=== PATIENT | male | born 1965 | race Caucasian/White ===

== ENCOUNTER 2023-07-05 06:33 | Outpatient (OUT) | payer OTHER, SELFPAY ==
[2023-07-05 07:48] LABS: Basophils Absolute Auto 0.1 10^3/uL (0.0-0.1); Basophils Percent Auto 1.1 % (0.2-2.0); Eosinophils Absolute Auto 0.4 10^3/uL (0.0-0.7); Eosinophils Percent Auto 5.3 % (0.9-7.0); Hematocrit 48.1 % (42.0-54.0); Hemoglobin 15.9 g/dL (14.0-18.0); Immature Granulocytes Abs Auto 0.03 10^3/uL (0.00-0.03); Immature Granulocytes Pct Auto 0.4 % (0.0-0.5); Lymphocytes Absolute Auto 2.2 10^3/uL (1.2-3.8); Lymphocytes Percent Auto 27.9 % (20.5-60.0); Mean Corpuscular HGB Conc 33.1 g/dL (29.9-35.2); Mean Corpuscular Hemoglobin 29.4 pg (25.9-34.0); Mean Corpuscular Volume 88.9 fL (80.0-94.0); Mean Platelet Volume 9.8 fL (9.5-13.5); Monocytes Absolute Auto 0.7 10^3/uL (0.3-0.8); Monocytes Percent Auto 9.1 % (1.7-12.0); Neutrophils Absolute Auto 4.5 10^3/uL (1.4-6.5); Neutrophils Percent Auto 56.2 % (43.0-75.0); Platelet Count 293 10^3/uL (150-450); Red Blood Count 5.41 10^6/uL (4.70-6.10); Red Cell Distribution Width 12.2 % (11.0-15.0)
[2023-07-05 07:58] LABS: Estimated Average Glucose 108 mg/dL; Glycohemoglobin A1C 5.4 % (4.5-6.2)
[2023-07-05 08:10] LABS: Alanine Aminotransferase 55 U/L (16-63); Albumin Globulin Ratio 1.2; Alkaline Phosphatase 73 U/L (46-116); Anion Gap 16.3; Aspartate Amino Transferase 23 U/L (15-37); BUN Creatinine Ratio 13.1; Bilirubin Total 0.4 mg/dL (0.2-1.0); Calcium 8.7 mg/dL (8.5-10.1); Carbon Dioxide 26.1 mmol/L (21.0-32.0); Chloride 106 mmol/L (98-107); Cholesterol 201 mg/dL (<=200); Estimated GFR (African America >60 (>=60); Estimated GFR (Non-African Ame >60 (>=60); Free T3 2.86 pg/mL (2.18-3.98); Globulin 3.4 g/dL; Glucose 107 mg/dL (74-106); HDL Cholesterol 50 mg/dL (40-60); Potassium 4.4 mmol/L (3.5-5.1); Sodium 144 mmol/L (136-145); Thyroid Stimulating Hormone 0.687 uIU/mL (0.358-3.740); Total Protein 7.4 g/dL (6.4-8.2); Triglycerides 127 mg/dL (<=150); Uric Acid 6.9 mg/dL (3.5-7.2); VLDL CHOLESTEROL 25.4 mg/dL
[2023-07-05 08:16] LABS: Prostate Specific Antigen Scrn 2.34 ng/mL (<=4.00)
== END 2023-07-05 06:34 | disposition home or self-care (01) ==
PROVIDERS: PCP Family Medicine; Visit Provider Family Medicine
DX: Z00.00 Encounter for general adult medical examination without abnormal findings (principal); Z12.5 Encounter for screening for malignant neoplasm of prostate
CPT/HCPCS: 36415; 80053; 80061; 83036; 83525; 84436; 84443; 84481; 84550; 85025; G0103

== ENCOUNTER 2025-03-02 11:07 | Outpatient (OUT) | payer OTHER, SELFPAY ==
--- OUTSIDE RECORDS SUMMARY | 2024-01-07 07:13 | XMS_ITS ---
Author Organization The [facility] in [place] Address [address] [place] [address] Care Team Providers Care Traffic Ii Manager Name Role Phone Chepe Ulrich Primary Care Provider EMILY ULRICH Unavailable [phone] Medications Medication SIG (Take, Route, Fr equency, Duration) Notes Start Date End Date Status Lisinopril 10 MG 1 tablet Orally Once a day for 30 days Active Encounters Encounter Location Date Provider Diagnosis [facility] [address] [place] [address] 01/07/2024 EMILY ULRICH Plan Of Treatment Medication Medication Name Sig Start Date Stop Date Notes Lisinopril 10 MG 1 tablet Orally Once a day for 30 days Progress Notes * Adriano DEJESUS RDOB:1965 (58 yo M)Acc No.[id number]:01/07/2024 Patient: Brenna TEEAdriano Vanessa :1965 A ge:58 Y S ex:Male Address:[address] [place] [phone] * Refills Refill Lisinopril Tablet, 10 MG, Orally, 30 Tablet, 1 tablet, Once a day, 30 days, Refills=11 * true * Date: Generated for Zamzam vasquez/Tammyg/eTransmitting on: 0 03/02/2025 11:12 AM EDT
--- OUTSIDE RECORDS SUMMARY | 2025-03-02 11:12 | XMS_ITS | Patient Health Record ---
Author Organization The [facility] in [place] Address [address] [place] [address] Care Team Providers Care Buck Swamper Name Role Phone Chepe Desir Primary Care Provider Allergies No Known Allergies Reason For Referral No Information Medications Medication SIG (Take, Route, Fr equency, [...] since you last smoked? > 10 years Alcohol Screen (Audit-C) Question Answer Notes Did you have a drink containing alcohol in the p ast year? No Points 0 Interpretation Negative Problems Problem Type SNOMED Code ICD Code Onset Dates Problem Status W/U Status Risk Notes Problem [id number] Spondylosis without myelopathy or radiculopathy, cervical region (M47.812) Active confirmed Problem Well adult (973471324) Well adult (Z00.00) Active confirmed Vital Signs Blood pressure diastolic 78 mm Hg 03/02/2025 Height 70 in 03/02/2025 Blood pressure systolic 110 mm Hg 03/02/2025 Weight 202.6 lbs 03/02/2025 BMI 29.07 kg/m2 03/02/2025 Encounters Encounter Location Date Provider Diagnosis [facility] [address] [place] [address] 03/02/2025 Chepe Desir Well adult Z00.0 0 Assessments Encounter Date Diagnosis (ICD Code) Assessment Notes Treatment Notes Treatment Clinical Notes Section Notes 03/02/2025 Well adult (ICD-10 - Z00.00) Plan Of Treatment Pending Test Test Name Order Date CMP (COMPLETE METABOLIC PANEL) 3 HEMOGLOBIN A1C (GLYCO) 03/02/2025 HEMOGLOBIN A1C (GLYCO) 07/02/2023 INSULIN, TOTAL 03/02/2025 INSULIN, TOTAL 07/02/2023 LIPID PANEL (CHOL/TRIG/HDL/LDL) 07/02/20 23 LIPID PANEL (CHOL/TRIG/HDL/LDL) 03/02/20 25 CBC WITH DIFF 07/02/2023 PSA, PROSTATE-SPECIFIC ANTIGEN 3 URIC ACID 07/02/2023 STOOL OCCULT BLOOD 07/02/2023 STOOL OCCULT BLOOD 03/02/2025 THYROID PANEL (T4/TSH/FREE T3) 3 THYROID PANEL (T4/TSH/FREE T3) 5 PSA, SCREENING 03/02/2025 CMP (COMP MET STEPHEN) w/eGFR CKD-EPI 2024 CBC WITH DIFF 03/02/2025 Insurance Providers Payer Name Payer Address Payer Phone Subscriber Number Group Number Insured Name Patient Relationship to Insured Coverage Start Date Coverage End Date [employer] [address] [address] [place] [address] [id number] No Davey Spouse - patient is the spouse of the insured Medical (General) History Medical History History ICD Code 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
--- OUTSIDE RECORDS SUMMARY | 2025-03-02 11:12 | XMS_ITS | Clinical Summary ---
Author Organization [facility] Address [address] [place] [address] Care Team Providers Care Patient Access Specialist Name Role Phone Unavailable Primary Care Provider Unavailabl e Social History Tobacco Use Types Packs/Day Years Used Date Smoking Tobacco: Never Assessed Sex and Gender Information Value Date Recorded Sex Assigned at Not on file Legal Sex Male 6:57 PM EDT Gender Identity Not on file Sexual Orientation Not on file Plan of Treatment Not on file
[2025-03-02 11:34] LABS: Hematocrit 49.4 % (42.0-54.0); Hemoglobin 16.6 g/dL (14.0-18.0); Immature Granulocytes Abs Auto 0.03 10^3/uL (0.00-0.03); Immature Granulocytes Pct Auto 0.3 % (0.0-0.5); Lymphocytes Absolute Auto 1.8 10^3/uL (1.2-3.8); Mean Corpuscular HGB Conc 33.6 g/dL (29.9-35.2); Mean Corpuscular Hemoglobin 29.5 pg (25.9-34.0); Mean Corpuscular Volume 87.7 fL (80.0-94.0); Platelet Count 282 10^3/uL (150-450); Red Blood Count 5.63 10^6/uL (4.70-6.10); White Blood Count 10.0 10^3/uL (4.0-11.0)
[2025-03-02 11:56] LABS: Alanine Aminotransferase 59 U/L (16-63); Albumin Globulin Ratio 1.4; Albumin Level 4.5 g/dL (3.4-5.0); Alkaline Phosphatase 67 U/L (46-116); Anion Gap 13.5; Aspartate Amino Transferase 26 U/L (15-37); Blood Urea Nitrogen 21.0 mg/dL (7.0-18.0); Calcium 9.3 mg/dL (8.5-10.1); Carbon Dioxide 27.8 mmol/L (21.0-32.0); Chloride 107 mmol/L (98-107); Cholesterol 200 mg/dL (<=200); Estimated GFR (African America >60 (>=60 mL/min/1.73m^2); Estimated GFR (Non-African Ame >60 (>=60 mL/min/1.73m^2); Free T3 2.92 pg/mL (2.18-3.98); Globulin 3.3 g/dL; Glucose 109 mg/dL (74-106); HDL Cholesterol 54 mg/dL (40-60); Potassium 4.3 mmol/L (3.5-5.1); Sodium 144 mmol/L (136-145); Thyroid Stimulating Hormone 0.721 uIU/mL (0.358-3.740); Total Protein 7.8 g/dL (6.4-8.2); Triglycerides 144 mg/dL (<=150); VLDL CHOLESTEROL 28.8 mg/dL
== END 2025-03-02 11:08 | disposition home or self-care (01) ==
LOC: LAB 11:10
PROVIDERS: PCP Family Medicine; Visit Provider Family Medicine
DX: Z00.00 Encounter for general adult medical examination without abnormal findings (principal); Z12.5 Encounter for screening for malignant neoplasm of prostate
CPT/HCPCS: 36415; 80053; 80061; 83036; 83525; 84436; 84443; 84481; 85025; G0103

== ENCOUNTER 2025-03-04 08:30 | Outpatient (REF) | payer OTHER, SELFPAY ==
--- OUTSIDE RECORDS SUMMARY | 2025-03-02 06:00 | XMS_ITS ---
Author Organization The [facility] in [place] Address [address] [place] [address] Care Team Providers Care Educational Administration Teacher Name Role Phone Karlee Chepe Primary Care Provider Allergies No Known Allergies REASON FOR VISIT annual- due for yearly labs as well Medications Medication SIG (Take, Route, Fr equency, Duration) Notes Start Date End Date Status Lisinopril 10 MG 1 tablet Orally Once a day for 30 days Active Aspirin 81 81 MG 1 tablet Orally Once a day Active Social History Tobacco Use: Social History Observation Description Date Details (start date - stop date) Former Smoker 08/18/1979 - 08/18/2019 Tobacco Use/Smoking Question Answer Notes Patient is a former smoker When did you start smoking? 08/18/1979 When did you stop smoking? 08/18/2019 How long has it been since you last smoked? > 10 years Vital Signs Weight 202.6 lbs 03/02/2025 Height 70 in 03/02/2025 Blood pressure systolic 110 mm Hg 03/02/20 25 Blood pressure diastolic 78 mm Hg 025 BMI 29.07 kg/m2 03/02/2025 Encounters Encounter Location Date Provider Diagnosis [facility] [address] [place] [address] 03/02/2025 Chepe Desir Well adult Z00.0 0 Assessments Encounter Date Diagnosis (ICD Code) Assessment Notes Treatment Notes Treatment Clinical Notes Section Notes 03/02/2025 Well adult (ICD-10 - Z00.00) Plan Of Treatment Pending Test Test Name Order Date HEMOGLOBIN A1C (GLYCO) 03/02/2025 INSULIN, TOTAL 03/02/2025 LIPID PANEL (CHOL/TRIG/HDL/LDL) 03/02/20 25 STOOL OCCULT BLOOD 03/02/2025 THYROID PANEL (T4/TSH/FREE T3) 5 PSA, SCREENING 03/02/2025 CMP (COMP MET STEPHEN) w/eGFR CKD-EPI 2024 CBC WITH DIFF 03/02/2025 Progress Notes * Adriano DEJESUS RDOB:1965 (59 yo M)Acc No.[id number]:03/02/2025 Progress Note Patient: Adriano COBB Provider: Otf Desir ([facility])MD :1965 A ge:59 Y S ex:Male Date:03/02/2025 Address:[address] [place], [place] [phone] Check In:09:50 AM ESTCheck O ut:10:58 AM EST Subjective: * Chief Complaints: * A nnual- due for yearly labs as well * HPI: D epression Screening: PHQ-2 (2015 Edition) L ittle interest or pleasure in doing things?�Not at all F eeling down, depressed, or hopeless? N ot at all T otal Score 0 * ROS: E ENT: hearing changes d enies. v isual changes d enies.�non-healing mouth sores d enies. s wollen glands or neck lumps d enies. h oarseness d enies. s ore throat d enies. d ifficulty swallowing d enies. n ose bleeds d enies. n philipp congestion d enies. e ar ache d enies. e ar discharge�denies. r inging in ears d enies. l ight sensitivity d enies. e ye pain d enies. b lurring d enies. e ye irritation d enies. d ouble vision d enies.�vision loss d enies. G eneral/Constitutional: Sweats: D enies. F atigue d enies. S leep problems d enies. A norexia d enies. M alaise d enies. W eight loss d enies.�Fatigue or Weakness d enies. F ever or Chills d enies. C ardiovascular: Shortness of Breath w/lying flat d enies. L ightheadedness/dizziness d enies. C hest tightness/ heavy pressure d enies. S welling of legs, ankles, or feet d enies. W aking up with shortness of breath d enies. C hest pain denies. P alpitations d enies. W eight gain d enies. R espiratory: Chronic or frequent cough d enies. C oughing up blood�denies. D ifficulty breathing d enies. P roductive cough d enies. S noring�denies. S hortness of breath that awakens from sleep (PND) d enies. C hest pain d enies. S putum production d enies. W heezing d enies. M usculoskeletal: Joint pain d enies. J oint Fluid d enies. B ack pain d enies. K nee pain d enies. N melisa pain d enies. J oint Stiffness d enies. M uscle cramps d enies. W eakness of muscles d enies. A rthritis d enies. M uscle aches d enies. P ain in shoulder(s) d enies. S wollen joints d enies. * Active Problem List M47.812 Spondylosis without myelopathy or radiculopathy, cervical region Modified On:02/14/2023W/U Status:confirmed Z00.00 Well adult Modified On:07/02/2023W/U Status:confirmed * Medical History: * Surgical History: r otator cuff repair 2014colonscopy 2012 * Hospitalization/Major Diagno stic Procedure: D enies Past Hospitalization * Family History: F ather: 85 yrs, dementia. M other: alive 88 yrs. B rother(s): alive. S ister(s): alive. 4 brother(s) , 1 sister(s) - healthy. . * Social History: T obacco Use: T obacco Use/Smoking P atient is a f ormer smoker W hen did you start smoking? 0 08/18/1979 W hen did you stop smoking? 0 08/18/2019 H ow long has it been since you last smoked?�> 10 years * Medications: T akingAspirin 81(Aspirin) 81 MG Tablet Delayed Release 1 tablet Orally Once a day Lisinopril 10 MG Tablet 1 tablet Orally Once a day Medication List reviewed and reconciled with the patientTaking Aspirin 81(Aspirin) 81 MG Tablet Delayed Release 1 tablet Orally Once a day Taking Lisinopril 10 MG Tablet 1 tablet Orally Once a day Medication List reviewed and reconciled with the patient * Allergies: N .K.D.A.no[Allergies Verified] Objective: * Vitals: W t:202.6lbs, Ht: 70 in, BP:110/78mm Hg, BMI:29.07Index, Ht-cm: 177.8 cm, Wt-k.9 kg. * Examination: P hysical Exam: GENERAL: w ell developed, well nourished, in no acute distress. HEAD: n ormocephalic/atraumatic. EYES: p upils equal, round and reactive to light, conjunctivae and sclerae normal. EARS: n o deformity or lesion of external ear, canals and TM appear normal bilaterally, TM's intact, not inflamed with normal light reflex, hearing grossly normal to conversational speech. NOSE: n o deformity, discharge, inflammation, or lesions.� MOUTH: m ucous membranes moist, normal oropharynx and posterior pharynx without lesions or exudates, tongue normal, dentition normal. NECK: n melisa supple, no masses or palpable cervical nodes, trachea midline, thyroid without nodules, masses, tenderness, or enlargement. CHEST: n o chest wall deformity, no chest wall tenderness.� LUNGS: n ormal respiratory effort and clear to auscultation, no wheezes, rales, or rhonchi, good air exchange. CARDIO: r egular rate and rhythm, normal S1 and S2, nor murmur, rub, or gallop. PULSES: n ormal capillary refill. ABDOMEN: s oft, non-distended, non-tender, no masses. MUSCULOSKELETAL: n o deformity or scoliosis noted, normal range of motion, joints normal, no erythema, edema, effusion, or ecchymosis. EXTREMITY: n o clubbing, cyanosis, edema, or deformity with normal ROM in both upper and lower bilateral extremities. NEUROLOGIC: g rossly normal. SKIN: n o rashes, ulcerations, or suspicious lesions. LYMPH NODES: n o cervical adenopathy, nodes normal. MENTAL STATUS: a lert and oriented x3, normal mood and affect. Assessment: * Assessment: 1. W ell adult - Z00.00 (Primary) Plan: * Treatment: * Procedure Codes: * Preventive Medicine: Screenings/Counseling: B SC ACTION PLAN Above Normal BMI Follow-up D ietary management education, guidance, and counseling * * Sign off status: Completed Visit Status: C HK (Check Out) true * Provider: Otf Desir ([facility])MD Date: 0 03/02/2025 Generated for Teresai christina/Antony/eTransmitting on: 03/04/2025 08:33 AM EDT History and Physical Notes * HPI (History of Present Illness) Category Sub-Category Detail Notes Category Not es Depression Screening PHQ-2 (2015 Edition) Little interest or pleasure in doing things?: Not at all Feeling down, depressed, or hopeless?: N ot at all Total Score: 0 Examination Category Sub-Category Detail Notes Category Not es Physical Exam GENERAL: well developed, well nourished, in no acute distress HEAD: normocephalic/atraum atic EYES: pupils equal, round and reactive to light, conjunctivae and sclerae normal EARS: no deformity or lesi on of external ear, canals and TM appear normal bilaterally, TM's intact, not inflamed with normal light reflex, hearing grossly normal to conversational speech NOSE: no deformity, discha rge, inflammation, or lesions MOUTH: mucous membranes sonia st, normal oropharynx and posterior pharynx without lesions or exudates, tongue normal, dentition normal NECK: neck supple, no mass es or palpable cervical nodes, trachea midline, thyroid without nodules, masses, tenderness, or enlargement CHEST: no chest wall deform ity, no chest wall tenderness LUNGS: normal respiratory e ffort and clear to auscultation, no wheezes, rales, or rhonchi, good air exchange CARDIO: regular rate and rhy thm, normal S1 and S2, nor murmur, rub, or gallop PULSES: normal capillary ref ill ABDOMEN: soft, non-distended, non-tender, no masses RECTAL: MUSCULOSKELETAL: no deformity or scol iosis noted, normal range of motion, joints normal, no erythema, edema, effusion, or ecchymosis EXTREMITY: no clubbing, cyanosi s, edema, or deformity with normal ROM in both upper and lower bilateral extremities NEUROLOGIC: grossly normal SKIN: no rashes, ulceratio ns, or suspicious lesions LYMPH NODES: no cervical adenopat hy, nodes normal MENTAL STATUS: alert and oriented x 3, normal mood and affect
--- OUTSIDE RECORDS SUMMARY | 2025-03-02 08:49 | XMS_ITS ---
Author Organization The [facility] in [place] Address [address] [place] [address] Care Team Providers Care Hostess Cashier Name Role Phone Chepe Desir Primary Care Provider REASON FOR VISIT labs Encounters Encounter Location Date Provider Diagnosis [facility] [address] [place] [address] 03/02/2025 Chepe Desir Plan Of Treatment No Information Progress Notes * Adriano DEJESUS RDOB:1965 (59 yo M)Acc No.[id number]:03/02/2025 Patient: Brenna TEEAdriano Vanessa :1965 A ge:59 Y S ex:Male Address:[address] [place] [phone] * true * Date: Generated for Teresai christina/Antony/eTransmitting on: 0 03/04/2025 08:32 AM EDT
--- OUTSIDE RECORDS SUMMARY | 2025-03-02 10:14 | XMS_ITS ---
Author Organization The [facility] in [place] Address [address] [place] [address] Care Team Providers Care Electric Motor Mechanic Name Role Phone Chepe Desir Primary Care Provider REASON FOR VISIT refill Medications Medication SIG (Take, Route, Fr equency, Duration) Notes Start Date End Date Status Lisinopril 10 MG 1 tablet Orally Once a day for 30 days Active Encounters Encounter Location Date Provider Diagnosis [facility] [address] [place] [address] 03/02/2025 Chepe Karlee Plan Of Treatment Medication Medication Name Sig Start Date Stop Date Notes Lisinopril 10 MG 1 tablet Orally Once a day for 30 days Progress Notes * Adriano DEJESUS RDOB:1965 (59 yo M)Acc No.[id number]:03/02/2025 Patient: Brenna Adriano GAY :1965 A ge:59 Y S ex:Male Address:[address] [place] [phone] * Refills Refill Lisinopril Tablet, 10 MG, Orally, 30 Tablet, 1 tablet, Once a day, 30 days, Refills=11 * true * Date: Generated for Zamzam vasquez/Antony/eTransmitting on: 0 03/04/2025 08:32 AM EDT
--- OUTSIDE RECORDS SUMMARY | 2025-03-04 08:32 | XMS_ITS | Patient Health Record ---
Author Organization The [facility] in [place] Address [address] [place] [address] Care Team Providers Care Barker Peeler Name Role Phone Chepe Desir Primary Care Provider Allergies No Known Allergies Results Component Value Reference Range Notes CBC AUTO DIFF Reviewed date:03/02/2025 12:50:01 PM Interpretation: Performing Lab: Notes/Report: [facility] , White Blood Count 10.0 4.0-11.0 10 3/uL Red Blood Count 5.63 4.70-6.10 10 6/uL Hemoglobin 16.6 14.0-18.0 g/dL Hematocrit 49.4 42.0-54.0 % Mean Corpuscular Volume 87.7 80.0-94.0 fL Mean Corpuscular Hemoglobin 29.5 25.9-34.0 pg Mean Corpuscular HGB Conc 33.6 29.9-35.2 g/dL Red Cell Distribution Width 12.6 11.0-15.0 % Platelet Count 282 150-450 10 3/uL Mean Platelet Volume 9.5 9.5-13.5 fL Neutrophils Percent Auto 68.6 43.0-75.0 % Lymphocytes Percent Auto 18.4 20.5-60.0 % Monocytes Percent Auto 9.2 1.7-12.0 % Eosinophils Percent Auto 2.7 0.9-7.0 % Basophils Percent Auto 0.8 0.2-2.0 % Immature Granulocytes Pct Auto 0.3 0.0-0.5 % Neutrophils Absolute Auto 6.8 1.4-6.5 10 3/uL Lymphocytes Absolute Auto 1.8 1.2-3.8 10 3/uL Monocytes Absolute Auto 0.9 0.3-0.8 10 3/uL Eosinophils Absolute Auto 0.3 0.0-0.7 10 3/uL Basophils Absolute Auto 0.1 0.0-0.1 10 3/uL Immature Granulocytes Abs Auto 0.03 0.00-0.03 10 3/uL Performing Lab: see note ML - [facility] FREE T3 Reviewed date:03/02/2025 12:50:01 PM Interpretation: Performing Lab: Notes/Report: [facility] , Free T3 2.92 2.18-3.98 pg/mL Performing Lab: see note ML - [facility] GLYCOHEMOGLOBIN A1C Reviewed date:03/02/2025 12:50:01 PM Interpretation: Performing Lab: Notes/Report: [facility] , Glycohemoglobin A1C 5.5 4.5-6.2 % > 7.0 ADA RECOMMENDED LIMIT 4.0 - 6.0 ACTION SUGGESTED ADA THERAPEUTIC TARGET < 7.0 Estimated Average Glucose 111 Performing Lab: see note - [facility] INSULIN Reviewed date:03/03/2025 04:18:03 PM Interpretation: Performing Lab: Notes/Report: [facility] , Insulin 13.6 2.6-24.9 uIU/mL Performed at: - [facility] [id number] Food And Beverage Assistant: Marek Rueda PhD, Phone: [phone] Performing Lab: see note - [facility] LB LIPID PROFILE Reviewed date:03/02/2025 12:50:01 PM Interpretation: Performing Lab: Notes/Report: [facility] , Triglycerides 144 <=150 mg/dL Cholesterol 200 <=200 mg/dL HDL Cholesterol 54 40-60 mg/dL > or =60 mg/dl - LOW CARDIOVASCULAR RISK <40 mg/dl - HIGH CARDIOVASCULAR RISK LDL Cholesterol Calculated 117.2 100-129 mg/dl NEAR OR ABOVE OPTIMAL 130-159 mg/dl BORDERLINE HIGH >190 mg/dl VERY HIGH <100 mg/dl OPTIMAL 160-189 mg/dl HIGH VLDL CHOLESTEROL 28.8 Chol HDL Ratio 3.7 >11.0 HIGH RISK 4.4 - 7.1 AVERAGE RISK 3.3 - 4.4 LOW RISK 7.1 - 11.0 MODERATE RISK Performing Lab: see note ML - [facility] PROF 14(COMP METB) Reviewed date:03/02/2025 12:50:01 PM Interpretation: Performing Lab: Notes/Report: [facility] , Sodium 144 136-145 mmol/L Potassium 4.3 3.5-5.1 mmol/L Chloride 107 98-107 mmol/L Carbon Dioxide 27.8 21.0-32.0 mmol/L Anion Gap 13.5 Glucose 109 74-106 mg/dL Blood Urea Nitrogen 21.0 7.0-18.0 mg/dL Creatinine 1.10 0.70-1.30 mg/dL Estimated GFR ( Coretta >60 >=60 mL/min/1.73m 2 Estimated GFR (Non- Brittany >60 >=60 mL/min/1.73m 2 BUN Creatinine Ratio 19.1 Calcium 9.3 8.5-10.1 mg/dL Bilirubin Total 0.7 0.2-1.0 mg/dL Aspartate Amino Transferase 26 15-37 U/L Alanine Aminotransferase 59 16-63 U/L Alkaline Phosphatase 67 46-116 U/L Total Protein 7.8 6.4-8.2 g/dL Albumin Level 4.5 3.4-5.0 g/dL Globulin 3.3 Albumin Globulin Ratio 1.4 Performing Lab: see note - [facility] LB T4 Reviewed date:03/02/2025 12:50:01 PM Interpretation: Performing Lab: Notes/Report: [facility] , T4 Thyroxine 6.30 4.50-12.10 ug/dL Performing Lab: see note - [facility] LB TSH Reviewed date:03/02/2025 12:50:01 PM Interpretation: Performing Lab: Notes/Report: [facility] , Thyroid Stimulating Hormone 0.721 0.358-3.740 u IU/mL Performing Lab: see note - [facility] LB PSA SCREENING Reviewed date:03/02/2025 12:50:01 PM Interpretation: Performing Lab: Notes/Report: [facility] , Prostate Specific Antigen Scrn 2.65 <=4.00 ng/mL Performing Lab: see note [facility] Reason For Referral No Information Medications Medication [...] Problem Status W/U Status Risk Notes Problem [id number] Spondylosis without myelopathy or radiculopathy, cervical region (M47.812) Active confirmed Problem Well adult (374053082) Well adult (Z00.00) Active confirmed Vital Signs Blood pressure diastolic 78 mm Hg 03/02/2025 Height 70 in 03/02/2025 Blood pressure systolic 110 mm Hg 03/02/2025 Weight 202.6 lbs 03/02/2025 BMI 29.07 kg/m2 03/02/2025 Encounters Encounter Location Date Provider Diagnosis [facility] [address] [place] [address] 03/02/2025 Chepe Desir [facility] [address] [place] [address] 03/02/2025 Chepe Desir [facility] [address] [place] [address] 03/02/2025 Chepe Desir [facility] adult Z00.0 0 Assessments Encounter Date Diagnosis [...] Coverage End Date [employer] [address] [address] [place] [address] [id number] No Davey Spouse - patient is the spouse of the insured Medical (General) History Medical History History ICD Code 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
--- OUTSIDE RECORDS SUMMARY | 2025-03-04 08:33 | XMS_ITS | Clinical Summary ---
Author Organization [facility] Address [address] [place] [address] Care Team Providers Care Stenciling Machine Tender Name Role Phone Unavailable Primary Care Provider [...]
--- OUTSIDE RECORDS SUMMARY | 2025-03-04 08:33 | XMS_ITS | Encounter Summary ---
Author Organization [facility] Address [address], [address] [place] [address] Care Team Providers Care Supervisor Stitching Department Name Role Phone Jose Desir MD Primary Care Provider [phone] Reason for Referral * Imaging (Routine) - Closed Specialty Diagnoses / Procedures Referred By Contac t Referred To Contact Radiology Diagnoses Whiplash injury to neck, initial encounter Strain of tendon of left rotator cuff, initial encounter Sprain of left shoulder, unspecified shoulder sprain type, initial encounter Strain of neck muscle, initial encounter S13.4XXA (ICD-10-CM) - Whiplash injury to neck, initial encounter Procedures MRI CERVICAL SPINE WO CONTRAST CHG MRI SPINAL CANAL CERVICAL W/O CONTRAST MATRL [id number] - CHG MRI SPINAL CANAL CERVICAL W/O CONTRAST MATRL Shavon Johnson MD [address] [place] [phone] Phone: tel: fax: Referral ID Status Reason Start Date Expiration Date Visits Re quested Visits Authorized [id number] Closed 02/05/2023 02/05/2024 1 1 Encounter Details Date Type Department Care Team (Late st Contact Info) Description 02/05/2023 Transcribe Orders [facility] [address] [place] [id number] Shavon Johnson MD [address] [place] [id number] Whiplash injury to neck, initial encounter (Primary Dx); Strain of tendon of left rotator cuff, initial encounter; Sprain of left shoulder, unspecified shoulder sprain type, initial encounter; Strain of neck muscle, initial encounter Social History Tobacco Use Types Packs/Day Years Used Date Smoking Tobacco: Never Assessed Sex and Gender Information Value Date Recorded Sex Assigned at Not on file Legal Sex Male 9:57 AM EST Gender Identity Not on file Sexual Orientation Not on file documented as of this encounter Plan of Treatment Not on file documented as of this encounter Results * MRI CERVICAL SPINE WO CONTRAST (02/11/2023 3:19 PM EDT) Anatomical Region Laterality Modality C-spine, T-spine, Neck Magnetic Resonance 02/13/2023 2:34 PM EDT Impressions 02/13/2023 2:36 PM EDT Multilevel degenerative change with mild canal stenosis at C5-6 and C6-7. Foraminal narrowing bilaterally as described above. Narrative 02/13/2023 2:36 PM EDT EXAMINATION: MRI OF THE CERVICAL SPINE WITHOUT CONTRAST 02/11/2023 2:35 pm TECHNIQUE: Multiplanar multisequence MRI of the cervical spine was performed without the administration of intravenous contrast. COMPARISON: None. HISTORY: ORDERING SYSTEM PROVIDED HISTORY: Whiplash injury to neck, initial encounter TECHNOLOGIST PROVIDED HISTORY: Reason for Exam: PT STATES LEFT SIDE NECK PAIN X 1 MTH PT STATES ABNORMAL MRI sHOULDER pt states injury at work flipping a piece of steel FINDINGS: BONES/ALIGNMENT: The vertebral body heights are maintained. There is age-appropriate bone marrow signal. There is multilevel degenerative disc disease with loss of disc signal. There is disc space narrowing at the C5-6 and C6-7 levels. There is no spondylolisthesis. SPINAL CORD: No abnormal cord signal is seen. SOFT TISSUES: No paraspinal mass identified. C2-C3: There is no significant disc protrusion, spinal canal stenosis or neural foraminal narrowing. C3-C4: There is a disc osteophyte complex with uncovertebral and facet hypertrophy. There is no canal stenosis. There is moderate right and severe left foraminal narrowing. C4-C5: There is a disc osteophyte complex with uncovertebral and facet hypertrophy. There is no canal stenosis. There is severe foraminal narrowing. C5-C6: There is a disc osteophyte complex with uncovertebral and facet hypertrophy. There is canal stenosis measuring 9 mm in AP dimension. There is severe bilateral foraminal narrowing. C6-C7: There is a disc osteophyte complex with uncovertebral and facet hypertrophy. There is canal stenosis measuring 9 mm in AP dimension. There is severe bilateral foraminal narrowing. C7-T1: There is a disc osteophyte complex with uncovertebral and facet hypertrophy. There is no canal stenosis. There is moderate bilateral foraminal narrowing. Procedure Note Buddy Freeman MD - 02/13/2023 EXAMINATION: MRI OF THE CERVICAL SPINE WITHOUT CONTRAST 02/11/2023 2:35 pm TECHNIQUE: Multiplanar multisequence MRI of the cervical spine was performed withoutthe administration of intravenous contrast. COMPARISON: None. HISTORY: ORDERING SYSTEM PROVIDED HISTORY: Whiplash injury to neck, initialencounter TECHNOLOGIST PROVIDED HISTORY: Reason for Exam: PT STATES LEFT SIDE NECK PAIN X 1 MTH PT STATESABNORMAL MRI sHOULDER pt states injury at work flipping a piece of steel FINDINGS: BONES/ALIGNMENT: The vertebral body heights are maintained. There is age-appropriate bone marrow signal. There is multilevel degenerativedisc disease with loss of disc signal. There is disc space narrowing at theC5-6 and C6-7 levels. There is no spondylolisthesis. SPINAL CORD: No abnormal cord signal is seen. SOFT TISSUES: No paraspinal mass identified. C2-C3: There is no significant disc protrusion, spinal canal stenosis or neural foraminal narrowing. C3-C4: There is a disc osteophyte complex with uncovertebral and facet hypertrophy. There is no canal stenosis. There is moderate right andsevere left foraminal narrowing. C4-C5: There is a disc osteophyte complex with uncovertebral and facet hypertrophy. There is no canal stenosis. There is severe foraminal narrowing. C5-C6: There is a disc osteophyte complex with uncovertebral and facet hypertrophy. There is canal stenosis measuring 9 mm in AP dimension.There is severe bilateral foraminal narrowing. C6-C7: There is a disc osteophyte complex with uncovertebral and facet hypertrophy. There is canal stenosis measuring 9 mm in AP dimension.There is severe bilateral foraminal narrowing. C7-T1: There is a disc osteophyte complex with uncovertebral and facet hypertrophy. There is no canal stenosis. There is moderate bilateral foraminal narrowing. IMPRESSION: Multilevel degenerative change with mild canal stenosis at C5-6 andC6-7. Foraminal narrowing bilaterally as described above. Shavon Johnson MD IMG MRI ORDERABLES Final Result documented in this encounter Visit Diagnoses Diagnosis Whiplash injury to neck, initial encounter- Primary Strain of tendon of left rotator cuff, initial encounter Sprain of left shoulder, unspecified shoulder sprain type, initial encounter Strain of neck muscle, initial encounter Whiplash injury to neck, initial encounter Strain of tendon of left rotator cuff, initial encounter Sprain of left shoulder, unspecified shoulder sprain type, initial encounter Strain of neck muscle, initial encounter documented in this encounter Care Teams Supervisor Stitching Department Relationship Specialty Start Date End Date Jose Desir MD [address] [place] [address] PCP - General Family Medicine 10/01/18 documented as of this encounter
--- OUTSIDE RECORDS SUMMARY | 2025-03-04 08:33 | XMS_ITS | Clinical Summary ---
Author Organization [facility] Address [address], [address] [place] [address] Care Team Providers Care Measurement Analyst Name Role Phone Jose Desir MD Primary Care Provider [phone] Allergies No known active allergies Medications No known medications Social History Tobacco Use Types Packs/Day Years Used Date Smoking Tobacco: Former Cigarettes 1 - 2007 Smokeless Tobacco: Never Tobacco Cessation:Counseling Given: Yes Alcohol Use Standard Drinks/Week Comments Never 0 (1 standard drink = 0.6 oz pur e alcohol) Sex and Gender Information Value Date Recorded Sex Assigned at Not on file Legal Sex Male 9:57 AM EST Gender Identity Not on file Sexual Orientation Not on file Last Filed Vital Signs Vital Sign Reading Time Taken Comments Blood Pressure 142/64 10/01/2018 8:14 AM EST Pulse 79 10/01/2018 8:14 AM EST Temperature 37.1 C (98.8 F) 10/01/2018 8:14 AM EST Respiratory Rate 14 03/19/2023 11:37 AM EDT Oxygen Saturation 97% 10/01/2018 8:14 AM EST Inhaled Oxygen Concentration - - Weight 90.7 kg (200 lb) 03/19/2023 11:37 AM EDT Height 177.8 cm (5' 10 ) 03/19/2023 11:37 AM EDT Body Mass Index 28.7 03/19/2023 11:37 AM EDT Plan of Treatment Health Maintenance Due Date Last Done Comments Depression Screen 1975 HIV screen 1978 Hepatitis C screen 1981 DTaP/Tdap/Td vaccine (1 - Tdap) 1982 Lipids 2003 Colonoscopy 2008 Colorectal Cancer Screen 2008 FIT/FOBT: Average risk 2008 Fecal-DNA (Cologuard): Average risk 2008 Sigmoidoscopy/CT colonography 2008 Pneumococcal 50+ years Vacci ne (1 of 1 - PCV) 2013 Shingles vaccine (1 of 2) 2013 COVID-19 Vaccine (1 - 2023-2 5 season) 2024 Flu vaccine (#1) 03/18/2025 Respiratory Syncytial Virus (RSV) or age 60 yrs+ (1 - 1-dose 75+ series) 2038 Hepatitis A vaccine Aged Out No longe r eligible based on patient's age to complete this topic Hepatitis B vaccine Aged Out No longe r eligible based on patient's age to complete this topic Hib vaccine Aged Out No longer eligi ble based on patient's age to complete this topic Meningococcal (ACWY) vaccine Aged Out No longer eligible based on patient's age to complete this topic Meningococcal B vaccine Aged Out No l onger eligible based on patient's age to complete this topic Polio vaccine Aged Out No longer elig ible based on patient's age to complete this topic Insurance Care Teams Measurement Analyst Relationship Specialty Start Date End Date Jose Desir MD [address] [place] [address] PCP - General Family Medicine 10/01/18
--- OUTSIDE RECORDS SUMMARY | 2025-03-04 08:33 | XMS_ITS | Clinical Summary ---
Author Organization [facility] Address [id number] [address] [place] [address] Care Team Providers Care Physician Asst Name Role Phone Jose Desir MD Primary Care Provider [phone] Allergies No known active allergies Medications lisinopriL (PRINIVIL,ZESTRI L) 10 mg tablet Take 1 tablet (10 mg total) by mouth in the morning. 04/28/2022 Active irbesartan (AVAPRO) 150 mg tablet Take 1 tablet (150 mg total) by mouth in the morning. 09/12/2022 Active Active Problems Problem Noted Date Diagnosed Date Tinnitus of both ears 06/20/2022 Asymmetrical hearing loss 06/20/2022 MHL (mixed hearing loss) 06/20/2022 Social History Tobacco Use Types Packs/Day Years Used Date Smoking Tobacco: Former Smokeless Tobacco: Never Tobacco Cessation:Counseling Given: Not Answered Childcare Answer Date Recorded Childcare Unknown 01/27/2019 Employment Answer Date Recorded Employment Unknown 01/27/2019 Hunger Screening Answer Date Recorded Within the past 12 months we worried whether our food would run out before we got money to buy more. Never True 10/07/2022 Within the past 12 months th e food we bought just didn't last and we didn't have money to get more. Never True 10/07/2022 Sex and Gender Information Value Date Recorded Sex Assigned at Not on file Legal Sex Male 11:23 AM EDT Gender Identity Not on file Sexual Orientation Not on file Last Filed Vital Signs Vital Sign Reading Time Taken Comments Blood Pressure 158/90 10/07/2022 11:23 AM EST Pulse 47 10/07/2022 11:23 AM EST Temperature 36.9 C (98.5 F) 10/07/2022 11:23 AM EST Respiratory Rate 18 03/12/2022 1:09 PM EDT Oxygen Saturation 97% 03/12/2022 1:09 PM EDT Inhaled Oxygen Concentration - - Weight 94.3 kg (208 lb) 10/07/2022 11:23 AM EST Height 177.8 cm (5' 10 ) 10/07/2022 11:23 AM EST Body Mass Index 29.84 10/07/2022 11:23 AM EST Plan of Treatment Health Maintenance Due Date Last Done Comments Depression Screening 1975 Tobacco Screening 1975 DTaP,Tdap and Td Vaccines (1 - Tdap) 1982 Zoster (Shingles) Vaccine (1 of 2) 2013 Adult BMI Screening 10/07/2023 10/07/2022 Influenza Vaccine 04/18/2025 Medical Devices Not on file Insurance MELISSA PERRY [facility] Care Teams Physician Asst Relationship Specialty Start Date End Date Jose Desir MD PCP - General Family Medicine 03/12/22
== END 2025-03-04 08:31 | disposition home or self-care (01) ==
LOC: LAB 08:30
PROVIDERS: PCP Family Medicine; Visit Provider Family Medicine
DX: Z00.00 Encounter for general adult medical examination without abnormal findings (principal)
CPT/HCPCS: G0328